=== PATIENT | male | born 1995 | race Caucasian/White ===

== ENCOUNTER 2020-08-09 11:48 | Emergency (ER) | payer OTHER, SELFPAY ==
[2020-08-09 11:57] VITALS: BP 154/85; PULSE 100; RESP 18; TEMP 36.8; O2SAT 97; BMI 31.8
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
== END 2020-08-09 12:52 | disposition home or self-care (01) ==
PROVIDERS: Emergency Provider Emergency Medicine
DX: S16.1XXA Strain of muscle, fascia and tendon at neck level, initial encounter (principal); S13.4XXA Sprain of ligaments of cervical spine, initial encounter; V43.52XA Car driver injured in collision with other type car in traffic accident, initial encounter; Y93.89 Activity, other specified; Y92.414 Local residential or business street as the place of occurrence of the external cause; Y99.9 Unspecified external cause status
CPT/HCPCS: 99283